=== PATIENT | female | born 1955 | race Caucasian/White ===

== ENCOUNTER 2021-03-20 14:36 | Outpatient (REF) | payer OTHER, SELFPAY ==
--- NOTE | ~2021-03-20 | MM_ITS ---
EXAMINATION: MM SCREENING DIGITAL BREAST TOMOSYNTHESIS, BILATERAL CLINICAL INFORMATION: Screening. Asymptomatic. The lifetime risk of breast cancer based on the Tyrer-Cuzick Model is 6.6%. COMPARISON: Mammography: December 27, 2019 and studies dating back to February 15, 2012 TECHNIQUE: Digital breast tomosynthesis is performed in both the craniocaudal and mediolateral oblique views along with computer-aided detection (CAD). Synthesized 2D images are generated from the tomosynthesis. FINDINGS: There are scattered areas of fibroglandular density (ACR BI-RADS breast composition Category b). There are no significant masses, abnormal calcifications, or other abnormalities. MM/MM tomosynthesis screening BI IMPRESSION: There are no significant changes from prior study. ASSESSMENT: BI-RADS 1: Negative RECOMMENDATION: Routine annual mammography screening. This patient's information was entered into a reminder system with a target due date for their next mammogram.
== END 2021-03-20 14:37 | disposition home or self-care (01) ==
LOC: HO.MAMMO 14:36
PROVIDERS: Visit Provider Nurse Practitioner Family
DX: Z12.31 Encounter for screening mammogram for malignant neoplasm of breast (principal)
CPT/HCPCS: 77063; 77067

== ENCOUNTER 2022-03-23 16:05 | Outpatient (REF) | payer MEDICARE, SELFPAY ==
--- NOTE | ~2022-03-23 | MM_ITS ---
EXAMINATION: MM SCREENING DIGITAL BREAST TOMOSYNTHESIS, BILATERAL CLINICAL INFORMATION: Screening. Asymptomatic. The lifetime risk of breast cancer based on the Tyrer-Cuzick Model is 8%. COMPARISON: Mammography: 03/20/2021, 12/27/2019, 11/10/2018, 10/12/2017 TECHNIQUE: Digital breast tomosynthesis is performed in both the craniocaudal and mediolateral oblique views along with computer-aided detection (CAD). Synthesized 2D images are generated from the tomosynthesis. FINDINGS: There are scattered areas of fibroglandular density (ACR BI-RADS breast composition Category b). Parenchymal pattern is similar to prior studies. There is chronic parenchymal asymmetry upper left breast on MLO view similar to prior exams. Neither breast shows developing density or interval architectural abnormality. There are scattered bilateral punctate round and dermal calcifications. Small low axillary tail nodes are stable. The skin contours are smooth. No significant changes. MM/MM tomosynthesis screening BI IMPRESSION: No mammographic evidence of malignancy. ASSESSMENT: BI-RADS 2: Benign RECOMMENDATION: Routine annual mammography screening. This patient's information was entered into a reminder system with a target due date for their next mammogram.
== END 2022-03-23 16:06 | disposition home or self-care (01) ==
LOC: HO.MAMMO 16:05
PROVIDERS: Visit Provider Nurse Practitioner Family
DX: Z12.31 Encounter for screening mammogram for malignant neoplasm of breast (principal)
CPT/HCPCS: 77063; 77067

== ENCOUNTER 2023-04-20 15:02 | Outpatient (REF) | payer MEDICARE, SELFPAY ==
--- NOTE | ~2023-04-20 | MM_ITS ---
EXAMINATION: MM SCREENING DIGITAL BREAST TOMOSYNTHESIS, BILATERAL CLINICAL INFORMATION: Screening. Asymptomatic. The lifetime risk of breast cancer based on the Tyrer-Cuzick Model is 7%. COMPARISON: Mammography: 03/23/2022, 03/20/2021, 12/27/2019, 11/10/2018, 10/12/2017 TECHNIQUE: Digital breast tomosynthesis is performed in both the craniocaudal and mediolateral oblique views along with computer-aided detection (CAD). Synthesized 2D images are generated from the tomosynthesis. FINDINGS: There are scattered areas of fibroglandular density (ACR BI-RADS breast composition Category b). Parenchymal pattern is similar to prior studies and there is no developing density or interval significant mass or architectural abnormality. No abnormal calcifications. Scattered bilateral asymmetries are stable including posterior upper left breast on MLO view and mid outer right breast on CC view. There are scattered bilateral round and dermal calcifications. The axilla and skin contours are unremarkable. No significant changes from prior exams. MM/MM tomosynthesis screening BI IMPRESSION: No mammographic evidence of malignancy. ASSESSMENT: BI-RADS 2: Benign RECOMMENDATION: Routine annual mammography screening. This patient's information was entered into a reminder system with a target due date for their next mammogram.
== END 2023-04-20 15:03 | disposition home or self-care (01) ==
LOC: HO.MAMMO 15:02
PROVIDERS: Visit Provider Nurse Practitioner Family
DX: Z12.31 Encounter for screening mammogram for malignant neoplasm of breast (principal)
CPT/HCPCS: 77063; 77067

== ENCOUNTER 2024-04-25 14:31 | Outpatient (REF) | payer MEDICARE, SELFPAY | END 2024-04-25 14:32 | disposition home or self-care (01) | LOC: HO.MAMMO 14:31 | PROVIDERS: PCP Nurse Practitioner; Visit Provider Nurse Practitioner Family | DX: Z12.31 Encounter for screening mammogram for malignant neoplasm of breast (principal) | CPT/HCPCS: 77063; 77067 ==

== ENCOUNTER → 2024-04-25 15:00 | Outpatient (BNV) | payer MEDICARE, SELFPAY | PROVIDERS: PCP Nurse Practitioner; Visit Provider Radiology Diagnostic Radiology | DX: Z12.31 Encounter for screening mammogram for malignant neoplasm of breast (principal) | CPT/HCPCS: 77063; 77067 ==

== ENCOUNTER 2025-05-01 14:19 | Outpatient (REF) | payer MEDICARE, SELFPAY ==
--- NOTE | ~2025-05-01 | MM_ITS ---
EXAMINATION: MM SCREENING DIGITAL BREAST TOMOSYNTHESIS, BILATERAL CLINICAL INFORMATION: Screening. Asymptomatic. COMPARISON: Mammography: Comparison is made with available priors TECHNIQUE: Digital breast mammography with tomosynthesis is performed in both the craniocaudal and mediolateral oblique views along with computer-aided detection (CAD). FINDINGS: There are scattered areas of fibroglandular density (ACR BI-RADS breast composition Category b). There are no significant masses, abnormal calcifications, or other abnormalities. MM/MM tomosynthesis screening BI IMPRESSION: No mammographic evidence of malignancy. ASSESSMENT: BI-RADS BI-RADS 1 - Negative RECOMMENDATION: Routine annual mammography screening. 1 year F/U This examination should not preclude the clinical evaluation of a suspicious palpable abnormality. This patient's information was entered into a reminder system with a target due date for their next mammogram. Electronically signed by: Erin Hilton DO 05/04/2025 05:41 PM EDT
--- OUTSIDE RECORDS SUMMARY | 2025-05-01 17:29 | XMS_ITS | Data Portability ---
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 Plan to continue to monitor ROM and guide patient through strengthening OH to meet goals of ADL's and IADL's. Rehab potential is Good. Next visit: review HEP. modify/progress/r egress as needed. RA Date: 02/18/24, Visit # 9/12 STG/LTG Time to Achieve Goal Progress per IE Comment STG 4 weeks Improve understanding of exacerbating movements contributing to pain. 75% STG 4 weeks Patient will improve R shoulder PROM WNL in all planes. 75% STG 4 weeks Patient will improve R shoulder and scapular MMT to 4/5 in all planes. 75% LTG 8 weeks Patient will improve R shoulder AROM WNL in all planes. 75% LTG 8 weeks Patient will improve R shoulder and scapular MMT to 5/5 in all planes. 50% LTG 8 weeks Independent in comprehensive HEP. 75% [email or web address] Not available 01/18/2024 10:04:09 01/20/2024 01/20/2024 We completed you r Medicare Wellness exam today. This was an opportunity to assess your overall well being including your ability to care for yourself, your mobility, memory, mental health, as well as your safety. With advancing age, it is important to assign someone in your life as your Health Care Proxy (HCP). This person should know what is important to you and what your wishes are for medical procedures if you cannot communicate your wishes yourself (severe illness, unconsciousness). We discussed having a completed Health Care Proxy form today. In addition, today we started a conversation about your End of Life wishes. These conversations will continue over the years. Please consider reading the book, Being Mortal by Humphrey Barrientos to help frame future conversations. We discussed the purpose of a MOLST form (Medical Orders for Life Sustaining Treatment) and completed this form if appropriate per your wishes. Vision and Hearing are senses that are critically important as we age. When impaired, they can contribute to memory loss, falls, and make it harder to drive, talk to family and friends, and engage in the world. Please get your vision checked yearly and your hearing checked when you start to notice hearing loss. We discussed approaches to lowering your risk of heart disease and stroke . Your blood pressure is at goal. Your cholesterol is at goal. We discussed cancer screening you may need as well as vaccines to prevent infections. Colon Cancer : Your risk of colon cancer is average. Due for colorectal screening:. If you are not planning to have a colonoscopy please screen with stool cards yearly. Breast Cancer : Breast Cancer Screening (mammography). Next mammogram due: 2023. Cervical Cancer Screening (pap test). Next pap due: 2024. Influenza Vaccine : Flu shot yearly. Tetanus Vaccine : Every 10 years. Due: 2022. last 2019 The following vaccines are available from your pharmacy: Pneumonia Vaccine : PCV20: once after age 65. Shingles Vaccine : 2 shots after age 50. Covid Vaccine : Make sure you have received the most up to date covid vaccine. Your personal health goal for the year is: see below [email or web address] Not available 01/21/2024 22:28:01 04/06/2024 04/06/2024 A: Pt presents with significant decrease of AROM and increased pain since last session, decreased flexibility of shoulder wrist, and elbow, and increased stiffness with function. PT reviewed AAROM using pulleys, dowel, supine versus seated. PT recommending supported AAROM of shoulder. PT recommending shoulder, elbow, wrist and forearm AROM first thing in the morning prior to movements. PT recommended pool/water aerobics to offload shoulder and allow for more range of motion. Pt would benefit from skilled PT intervention 1-2x/week for 12 weeks in order to address the aforementioned impairments, maximize patient function, and achieve patient specific goals. Physical Therapy Treatments may include (as appropriate): 76147 Therapeutic exercise 20766 Neuromuscular Re-education, Taping. 36083 Gait Training 36651 Manual 11756 Therapeutic Activities, Patient education, HEP instruction. 85951 Self-care Management 35952 Attended Electrical Stimulation for strength, ROM, flexibility, endurance, power, functional mechanics. 21026: Ultrasound Rehab potential is Good. Next visit: review HEP. modify/progress/r egress as needed. RA Date: 07/07/24, Visit # 10 STG/LTG Time to Achieve Re-eval 04/06/24 Goal Progress per IE Comment STG 4 weeks Improve understanding of exacerbating movements contributing to pain. 75% STG 4 weeks Patient will improve R shoulder PROM WNL in all planes. 50% STG 8 weeks Patient will improve R shoulder and scapular MMT to 3/5 in all planes. 75% LTG 8 weeks Patient will improve R shoulder AROM WNL in all planes. 50% LTG 12 weeks Patient will improve R shoulder and scapular MMT to 4/5 in all planes. 25% LTG 12 weeks Independent in comprehensive HEP. 75% [email or web address] Not available 04/06/2024 11:04:33 04/27/2024 04/27/2024 A: Pt is consulting with surgeon next week. Pt is actively participating with PT, would benefit from MRI, plan is to continue improving ROM as tolerated and strengthening as tolerated. Pt has most difficulty with ER, initial lifting, and lifting over 90 degrees. Rehab potential is Good. Next visit: review HEP. modify/progress/r egress as needed. RA Date: 07/07/24, Visit # 10 STG/LTG Time to Achieve Re-eval 04/06/24 Goal Progress per IE Comment STG 4 weeks Improve understanding of exacerbating movements contributing to pain. 75% STG 4 weeks Patient will improve R shoulder PROM WNL in all planes. 50% STG 8 weeks Patient will improve R shoulder and scapular MMT to 3/5 in all planes. 75% LTG 8 weeks Patient will improve R shoulder AROM WNL in all planes. 50% LTG 12 weeks Patient will improve R shoulder and scapular MMT to 4/5 in all planes. 25% LTG 12 weeks Independent in comprehensive HEP. 75% [email or web address] Not available 04/27/2024 11:30:15 Plan of Treatment Reminders Order Date Submit Date Provider Last Modified By Organization Details Last Modified Time Details Appointments None recorded. Lab None recorded. Referral None recorded. Procedures None recorded. Surgeries None recorded. Imaging None recorded. Medication Orders meloxicam 15 mg tablet 2023 024 [email or web address] [id number], [address], [facility], [place], [address], 11:42:21 Patient Targets Encounter Date Encounter Id Patient Goals Patient Target Last Modified By Organization Details Last Modified Time 01/20/2024 [id number] lose a few pounds, increase exercise, improve HDL [email or web address] Not available 01/20/2024 12:41:03 Patient Instructions Encounter Date Encounter Id Patient Instructions Last Modified By Organization Details Last Modified Time 11/23/2023 [id number] Continue with physical therapy Use Meloxicam as needed for pain Contact me if you would like to see a surgeon Follow-up as needed for your shoulder Make a follow-up appointment with the blood pressure clinic or your primary care provider within 2 weeks as we discussed Not available 11/23/2023 09:40:11 All of the patients questions were answered and they understand the plan of care. Thank you for allowing me to participate in the care of your patient. Please feel free to contact me with any questions regarding their care. Not available 11/23/2023 09:40:45 01/20/2024 [id number] advance directives: care instructions [email or web address] Not available 01/20/2024 12:37:33 preventing falls : care instructions Not available 01/20/2024 12:37:33 hearing loss: care instructions [email or web address] Not available 01/20/2024 12:37:33 well visit, over 65: care instructions [email or web address] Not available 01/20/2024 12:37:33 Reason for Referral None Reported. Results Created Date Observation Date Name Description Value Unit Range Abnormal Flag Note LastModifiedBy Organization Detail LastModifiedTime 01/13/20 24 01/13/2024 COMP. METAB OLIC PANEL glucose 88 mg/dL 70-100 Not Available [address], [address], 01/13/2024 14:41:34 01/13/20 24 01/13/2024 COMP. METAB OLIC PANEL BUN 12 mg/dL 7-18 Not Available [address], [address], 01/13/2024 14:41:34 01/13/20 24 01/13/2024 COMP. METAB OLIC PANEL creatinine 0.6 mg/dL 0.8-1. 3 low Not Available [address], [address], 01/13/2024 14:41:34 01/13/20 24 01/13/2024 COMP. METAB OLIC PANEL B/C 20.0 ratio Not Available [address], [address], 01/13/2024 14:41:34 01/13/20 24 01/13/2024 COMP. METAB OLIC PANEL GFR >=60ML /MIN mL/mi n normal >=60m L/min - Michelle l or midly reduc ed <60mL /min- Decre ased kidne y funct ion <15mL /min - Kidne y failu re [facility] calcu lates estim ated Glome rular Filtr ation Rate (eGFR ) using the Chron ic Kidne y Disea se Epide miolo gy Colla borat ion (CKD- EPI) Equat ion (Xiao r et. al 2020) as recom tasia d by the Natio nal Kidne y Found ation . eGFR is based on age, serum creat inine , and sex. CKD-E PI does not calcu late eGFR by race, does not apply to child bernard (age <18 years ), and shoul d not be used in pregn lenore. Not Available [address], [address], 01/13/2024 14:41:34 01/13/20 24 01/13/2024 COMP. METAB OLIC PANEL sodium 139 mmol/ L 136-14 5 Not Available [address], [address], 01/13/2024 14:41:34 01/13/20 24 01/13/2024 COMP. METAB OLIC PANEL potassium 5.0 mmol/ L 3.5-5. 1 Not Available [address], [address], 01/13/2024 14:41:34 01/13/20 24 01/13/2024 COMP. METAB OLIC PANEL chloride 102 mmol/ L 96-107 Not Available [address], [address], 01/13/2024 14:41:34 01/13/20 24 01/13/2024 COMP. METAB OLIC PANEL anion gap 9.0 5.0-15 .0 Not Available [address], [address], 01/13/2024 14:41:34 01/13/20 24 01/13/2024 COMP. METAB OLIC PANEL CO2 28 mmol/ L 21-32 Not Available [address], [address], 01/13/2024 14:41:34 01/13/20 24 01/13/2024 COMP. METAB OLIC PANEL calcium 9.5 mg/dL 8.5-10 .3 Not Available [address], [address], 01/13/2024 14:41:34 01/13/20 24 01/13/2024 COMP. METAB OLIC PANEL total protein 6.6 g/dL 6.4-8. 2 Not Available [address], [address], 01/13/2024 14:41:34 01/13/20 24 01/13/2024 COMP. METAB OLIC PANEL albumin 3.8 g/dL 3.4-5. 0 Not Available [address], [address], 01/13/2024 14:41:34 01/13/20 24 01/13/2024 COMP. METAB OLIC PANEL globulin 2.8 g/dL Not Available [address], [address], 01/13/2024 14:41:34 01/13/20 24 01/13/2024 COMP. METAB OLIC PANEL A/G 1.4 ratio 0.8-2. 0 Not Available [address], [address], 01/13/2024 14:41:34 01/13/20 24 01/13/2024 COMP. METAB OLIC PANEL total bilirubin 0.90 mg/dL 0.00-1 .00 Not Available [address], [address], 01/13/2024 14:41:34 01/13/20 24 01/13/2024 COMP. METAB OLIC PANEL AST 19 U/L 0-37 Not Available [address], [address], 01/13/2024 14:41:34 01/13/20 24 01/13/2024 COMP. METAB OLIC PANEL ALT 25 U/L 6-63 Not Available [address], [address], 01/13/2024 14:41:34 01/13/20 24 01/13/2024 COMP. METAB OLIC PANEL alk. phos. 86 U/L 50-136 Not Available [address], [address], 01/13/2024 14:41:34 01/13/20 24 01/13/2024 LIPID PANEL cholesterol 199 mg/dL <200 mg/dl Nurys able 200-2 39 mg/dl Borde rline High >240 mg/dl High Not Available [address], [address], 01/13/2024 14:41:35 01/13/20 24 01/13/2024 LIPID PANEL triglyceride s 97 mg/dL <150 mg/dL Michelle l 150-1 99 mg/dL Borde rline High 200-4 99 mg/dL High >500 mg/dL Very High Not Available [address], [address], 01/13/2024 14:41:35 01/13/20 24 01/13/2024 LIPID PANEL direct HDL 54 mg/dL <40 mg/dl - Major Risk for CHD >60 mg/dl - Negat fausto Risk for CHD Not Available [address], [address], 01/13/2024 14:41:35 01/13/20 24 01/13/2024 LDL - CALCU LATED LDL - calculated 125.6 RISK CATEG ORY LDL GOAL _ CHD or CHD Risk Equiv alent s <100 mg/dl (10-y ear risk >20%) 2+ Risk Facto rs <130 mg/dl (10-y ear risk <= 20%) 0-1 Risk Facto r <160 mg/dl Almo st all peopl e with 0-1 risk facto r have a 10 year risk <10%, thus 10 year risk asses ment in peopl e with 0-1 risk facto r is not neces grace. Not Available [address], [address], 01/13/2024 14:41:37 01/13/20 24 01/13/2024 VITAM IN D 25-HY DROXY TOTAL vitamin D 25-hydroxy EIA 34.9 NG/mL 20.0-9 9.9 Thera py is based on measu remen t of total 25-OH D, with level s less than 20 ng/mL indic ative of Vitam in D defic iency . Level s betwe en 20ng/ mL and 30 ng/mL sugge st insuf ficie ncy. Optim al Level s are great er than 30 ng/mL . Not Available [address], [address], 01/13/2024 15:15:45 05/25/20 24 04/25/2024 MAMMO , scree jana No observ ation record ed. [address] [place], [address], 05/26/2024 11:36:51 05/25/20 24 04/25/2024 MAMMO , scree jana No observ ation record ed. [address] [place], [address], 05/26/2024 11:36:52 Result Notes None recorded. Problems Name Problem SNOMED Code Status Onset Date Resolution Date Notes Provider Name and Address Organization Details Recorded Time Shoulder tendinit is Active right > left. Luisa Tracey, FINANCIAL REP-BC [address] [place] [address], [address] , [facility] 7 14:53:27 Olecrano n bursitis 364431652 Active NELLIE Dickson [address] [place] [address], [address] , [facility] 5 12:03:30 Osteopor osis 60520257 Active 2021 Based on 09/2022 bone density scan. Reviewed results. Ailin Rendon NP [address] [place] [address], [address] , [facility] 2 22:48:46 Mixed hyperlip idemia 753734889 Active 2000 Rachelle lovell, [facility] 5 08:36:16 Contusio n [id number] Completed 200310/10/2009 Not Available [facility] 3 03:09:33 Urticari a caused by cold and heat 848554142 Completed 200004/02/2017 Luisa Tracey [address], [address] , [facility] 7 14:52:24 Acute secretor y otitis media 964110187 Completed 200610/10/2009 Not Available [facility] 3 03:09:33 Gastroes ophageal reflux disease 510918375 Completed 04/02/2017 Luisa Tracey [address], [address] , [facility] 7 14:53:29 Presbyop ia 33971635 Active 2008 NELLIE Dickson [address] [place] [address], [address] , [facility] 5 11:59:00 Acute non-supp urative serous otitis media 182670010 Completed 200510/10/2009 Not Available [facility] 3 03:09:33 Radial styloid tenosyno vitis 23069602 Completed 200610/10/2009 Not Available [facility] 3 03:09:33 Benign essentia l hyperten corky 8000276 Completed 200004/02/2017 Luisa Tracey [address], [address] , [facility] 7 14:51:36 Neck pain 85297521 Completed 200310/10/2009 Not Available [facility] 3 03:09:33 Dog bite Completed 08/03/2013 NELLIE Dickson [address] [place] [address], [address] , [facility] 3 20:12:38 Acute suppurat fausto otitis media without spontane ous rupture of ear drum 73870652 Completed 200010/10/2009 Not Available [facility] 3 03:09:33 Atopic dermatit is 26675337 Completed 200610/10/2009 Not Available [facility] 3 03:09:33 Pure hypergly ceridemi a 871674955 Completed 200210/10/2009 Not Available [facility] 3 03:09:33 Allergic rhinitis caused by pollen 38155923 Active 2005 NELLIE Dickson [address] [place] [address], [address] , [facility] 5 12:03:30 Anemia 379935132 Completed 200504/02/2017 Luisa Tracey, [facility], [address] , [facility] 7 14:54:05 Acute maxillar y sinusiti s 79524000 Completed 200010/10/2009 Not Available [facility] 3 03:09:33 Elevated blood-pr essure reading without diagnosi s of hyperten corky 628130908 Completed 200110/10/2009 Not Available [facility] 3 03:09:33 Seborrhe ic dermatit is 01997552 Active NELLIE Dickson [address] [place] [address], [address] , [facility] 5 12:03:30 Myopia 24205354 Active 2008 NELLIE Dickson [address] [place] [address], [address] , [facility] 5 11:59:00 Astigmat ism 65365817 Active 2005 NELLIE Dickson [address] [place] [address], [address] , [facility] 5 11:59:00 Impacted cerumen 43331144 Completed 200110/10/2009 Not Available [facility] 3 03:09:33 Acute allergic serous otitis media 98703490 Completed 200610/10/2009 Not Available [facility] 3 03:09:33 Onychomy cosis 827956367 Completed 200204/02/2017 Luisa Tracey, FINANCIAL REP-BC [address] [place] [address], [address] , [facility] 7 14:54:23 Anisocor ia 02561182 Active 2005 NELLIE Dickson [address] [place] [address], [address] , [facility] 5 11:56:28 Contact dermatit is due to plants, except food Completed 08/03/2013 NELLIE Dickson [address] [place] [address], [address] , [facility] 3 20:12:38 Breathin g painful 72578427 Completed 200310/10/2009 Not Available [facility] 3 03:09:33 Finding by method 674898562 Completed 200008/03/2013 NELLIE Dickson [address] [place] [address], [address] , [facility] 3 20:12:38 Common cold 58781815 Completed 200110/10/2009 Not Available [facility] 3 03:09:33 Pain of joint of hand 658777309 Completed 09/27/2013 Not Available [facility] 3 02:02:43 On examinat ion - a rash Completed 200610/10/2009 Not Available [facility] 3 03:09:33 Cellulit is and abscess of upper arm 533028658 Completed 200310/10/2009 Not Available [facility] 3 03:09:33 Sprain of wrist 15399228 Completed 200610/10/2009 Not Available [facility] 3 03:09:33 Problem Notes None recorded. Procedures Surgical History Date Name Laterality Status Provider Name and Address Organization Details Recorded Time 01/20/20 24 Medicare Wellness Visit completed Milo Cochran [facility] 01/20/2024 11:32:04 01/20/20 24 Cerumen Removal - Irrigation/Lavage completed Sherly Martinez RN [facility] 01/20/2024 13:02:56 01/18/20 71997: Therapeutic Exercise completed Laurent Caicedo DPT [address] [place], [address], [facility] 01/18/2024 09:06:54 01/18/20 Neuromuscular re-education completed Laurent Caicedo DPT [address] [place], [address], [facility] 01/18/2024 10:04:28 01/18/20 Treatment and Advice completed Laurent Caicedo DPT [address] [place], [address], [facility] 01/18/2024 09:52:56 11/18/19 [address]: Therapeutic Exercise completed Laurent Caicedo DPT [address] [place], [address], [facility] 11/18/2023 09:03:02 11/18/19 [address]: Manual Therapy completed Laurent Caicedo DPT [address] [place], [address], [facility] 11/18/2023 09:03:02 11/18/19 Treatment and Advice completed Laurent Caicedo DPT [address] [place], [address], [facility] 11/21/2023 22:20:36 10/14/20 27156: Therapeutic Exercise completed Laurent Caicedo DPT [address] [place], [address], [facility] 10/14/2023 08:58:32 10/14/20 46435: Manual Therapy completed Laurent Caicedo DPT [address] [place], [address], [facility] 10/14/2023 11:00:03 10/14/20 23 [address]2771: Ultrasound (1:1) completed Laurent Caicedo DPT [address] [place], [address], [facility] 10/14/2023 11:00:57 10/14/20 Treatment and Advice completed Laurent Caicedo DPT [address] [place], [address], [facility] 10/14/2023 09:35:43 09/28/20 US Guided Shoulder Joint Injection completed Siva Zazueta MD [address] [place], [address], [facility] 09/28/2023 16:08:55 09/16/20 51413: Therapeutic Exercise completed Laurent Caicedo DPT [address] [place], [address], [facility] 09/16/2023 09:27:17 09/16/20 26055: Manual Therapy completed Laurent Caicedo DPT [address] [place], [address], [facility] 09/16/2023 09:27:17 09/16/20 Treatment and Advice completed Laurent Caicedo DPT [address] [place], [address], [facility] 09/16/2023 09:27:17 08/26/20 59830: Therapeutic Exercise completed Laurent Caicedo DPT [address] [place], [address], [facility] 08/26/2023 10:41:50 08/26/20 61074: Manual Therapy completed Laurent Caicedo DPT [address] [place], [address], [facility] 08/26/2023 10:41:45 08/26/20 Treatment and Advice completed Laurent Caicedo DPT [address] [place], [address], [facility] 08/26/2023 10:42:19 08/19/20 18302: Therapeutic Exercise completed Laurent Caicedo DPT [address] [place], [address], [facility] 08/19/2023 10:04:54 08/19/20 95664: Manual Therapy completed Laurent Caicedo DPT [address] [place], [address], [facility] 08/19/2023 10:05:02 08/19/20 Treatment and Advice completed Laurent Caicedo DPT [address] [place], [address], [facility] 08/19/2023 09:35:48 08/05/20 51006: Therapeutic Exercise completed Laurent Caicedo DPT [address] [place], [address], [facility] 08/05/2023 11:34:07 08/05/20 Treatment and Advice completed Laurent Caicedo DPT [address] [place], [address], [facility] 08/05/2023 12:01:15 07/21/20 81236: Therapeutic Exercise completed Laurent Caicedo DPT [address] [place], [address], [facility] 07/22/2023 09:47:38 07/21/20 Treatment and Advice completed Laurent Caicedo DPT [address] [place], [address], [facility] 07/21/2023 17:03:23 07/07/20 Physical Activity Counselling completed Laurent Caicedo DPT [address] [place], [address], [facility] 07/07/2023 11:33:26 07/07/20 16222: PT Eval Low Complexity completed Laurent Caicedo DPT [address] [place], [address], [facility] 07/07/2023 11:33:26 07/07/20 Treatment and Advice completed Laurent Caicedo DPT [address] [place], [address], [facility] 07/07/2023 11:57:05 11/17/20 22 Tigist - Colonoscopy completed Saleem Escoto MD [address] [place], [address], [facility] 09/24/2022 11:12:08 04/01/20 22 Medicare Wellness Visit completed Mar[facility] 03/31/2022 16:38:53 04/01/20 22 Alcohol use screening completed Marilia [facility]fe [facility] 03/31/2022 16:38:53 04/01/20 22 Cardiovascular disease risk reduction counseling completed Marilia [facility]fe [facility] 03/31/2022 16:38:53 01/03/20 20 prevention-cardiov ascular risk reduction counseling completed [facility] 01/03/2020 14:45:36 01/03/20 20 prevention-annual alcohol misuse screening completed [facility] 01/03/2020 14:45:36 04/02/20 15 Treatment and Advice completed Fatimah Lim OT [address] [place], [address], [facility] 04/02/2015 17:03:21 Imaging Results None recorded. Procedure Notes None recorded. Medical Equipment None Reported. Allergies No known drug allergies Medications Name Sig Start Date Stop Date Status Note LastModified by Organization Details LastModified Time Hydrocort isone-Iod oquinol 1 %-1 % topical cream 03/18 completed Take 1.00 applics twice daily Not Available Not Available Not Available omega-3 fatty acids 1,000 mg capsule Take 1 capsule twice a day by oral route. 2008 active Not Available Not Available Not Avai lable triamcino lone acetonide 0.5 % topical cream Apply a thin layer to the affected area(s) by topical route 2 times per day 2010 active Not Available Not Available Not Avai lable meloxicam 15 mg tablet TAKE 1 TABLET BY MOUTH EVERY DAY NEEDED FOR PAIN active Doesn't help for shoulder , not taking 01/20/24 Not Available Not Available Not Available Vitamin C 500 mg chewable tablet 01/19 completed stopped 09/28/23 Not Available Not Available Not Available triamcino lone acetonide 0.1 % topical cream APPLY A THIN LAYER TO THE AFFECTED AREA(S) BY TOPICAL ROUTE 2 TIMES PER DAY 04/02 completed Take 1.00 applics twice daily Not Available Not Available Not Available diclofena c sodium 75 mg tablet,de layed release TAKE 1 TABLET BY MOUTH TWICE A DAY NEEDED FOR 14 DAYS 11/23 completed not using Not Available Not Available Not Available ketoconaz ole 2 % topical cream APPLY BY TOPICAL ROUTE TO THE AFFECTED AREA(S) TWICE DAILY 01/19 completed Not Available Not Available Not Available Denta 5000 Plus 1.1 % cream USE DIRECTED BY DENTIST NOT COVERED* * active Not Available Not Available No t Available garlic active Not Available Not Availa ble Not Available multivita min active take 1 tab daily Not Available Not Available Not Available red yeast rice 600 mg capsule Take 2 capsules every day by oral route. 2008 active Not Available Not Available Not Avai lable Vitals Date Recorded Body height Systolic blood pressure Diastolic blood pressure Provider Name and Address Organization Details Last Updated DateTime 11/23/2023 155.45 cm 144 mm[Hg] 80 mm[Hg] Alissa Birch [facility] 11/23/2023 09:17:10 Date Recorded Body height Heart rate Body mass index (BMI) Body weight Systolic blood pressure Diastolic blood pressure Provider Name and Address Organization Details Last Updated DateTime 4 155.45 cm 80 /min 23.3 kg/m2 26555.4 5 g 154 mm[Hg] 80 mm[Hg] Milo Cochran [facility] 4 11:48:59 Social History Question Answer Notes LastModified by Organizat ion Details LastModified Time Tobacco Smoking Status Never Smoker Not Available [employer] 09/24/2011 04:53:49 What Is Your Level Of Caffeine Consumption? Moderate 2 Cups Per Day [email or web address] Information not available 10/22/2022 What Type Of Diet Are You Following? REGULAR [email or web address] Information not available 10/22/2022 Education 12 [email or web address] Information no t available 10/22/2022 Have There Been Any Changes To Your Family Or Social Situation? No [email or web address] Information not available 10/22/2022 Are There Any Guns Present In Your Home? No [email or web address] Information not available 09/24/2011 Do You Use Insect Repellent Routinely? No [email or web address] Information not available 10/22/2022 Live Alone Or With Others? With Others [email or web address] Information not available 10/22/2022 Patient Has Health Care Proxy Signed And In Chart No Has Form 01/2024 [email or web address] Information not available 09/24/2011 Marital Status [email or web address]-251 Informatio n not available 10/22/2022 Mosquito Repellent Used Routinely No Sometimes [email or web address] Information not available 10/22/2022 What Was The Date Of Your Most Recent Tobacco Screening? 01/20/2024 [email or web address] Information not available 01/20/2024 How Many Children Do You Have? 0 [email or web address] Information not available 03/26/2015 What Is Your Relationship Status? Information not available 04/01/2022 Do You Use Your Seat Belt Or Car Seat Routinely? Yes Information not available 04/01/2022 Seat Belts Used Routinely Yes [email or web address] Information not available 10/22/2022 Smoke Alarm In Home Yes [email or web address] Information not available 10/22/2022 Do You Have Smoke And Carbon Monoxide Detectors In Your Home? Yes No Carbon M. [email or web address] Information not available 10/22/2022 Are You Passively Exposed To Smoke? No [email or web address] Information not available 10/22/2022 General Stress Level Low [email or web address] Information not available 10/22/2022 Do You Use Sunscreen Routinely? No [email or web address] Information not available 10/22/2022 Sex: Unknown Functional Status Question Answer Note LastModified by Organizat ion Details LastModified Time Do you use any illicit or recreational drugs? No [email or web address] Information not available 10/22/2022 Do you or have you ever used any other forms of tobacco or nicotine? No [email or web address] Information not available 10/22/2022 What is your level of alcohol consumption? 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 Moderate Information not available 04/01/2022 Mental Status None recorded. Family History Relationship Description Onset Age of this Age Resolved Age Notes LastModified by Organization Details LastModified Time Brother Hyperlipidem ia [email or web address] [id number] Not available 06/19/2013 03:00:31 Brother Hypertensive disorder previo usly record ed as Hypert ension [email or web address] [id number] Not available 06/19/2013 03:00:31 Brother Type 2 diabetes mellitus [email or web address] Not available 2021 09:28:29 Mother Phlebitis and thrombophleb itis [email or web address]-251 Not available 2021 09:28:29 Mother Cerebrovascu lar accident 52 previo usly record ed as Stroke [email or web address] [id number] Not available 06/19/2013 03:00:31 Sister Hypertensive disorder ? (previ ously record ed as Hypert ension ) [email or web address] [id number] Not available 06/19/2013 03:00:31 Father Leukemia (morphologic abnormality) 72 chroni c myeloc ytic leukem ia (previ ously record ed as Cancer - Leukem ia) [email or web address] [id number] Not available 06/19/2013 03:00:31 Father Malignant neoplasm of lung previo usly record ed as Cancer - Lung [email or web address] [id number] Not available 06/19/2013 03:00:31 Notes:Cardiovascular: Family history is remarkable for hypertension and hyperlipidemia. mo and bro htn fa-hyperlipidemnia Neurological: Family history is remarkable for CVA. phlebitis with clot to brain in mother age 52 Cancer: Family history is remarkable for leukemia and lung cancer. father, smoker age 72 of CML 3 sisters - A&W (some overweight) Medical History No medical history recorded. Gynecological History Statement/Question Response Date of LMP Obstetrics History GPAL:G 0 P 0 0 0 0 Immunizations Vaccine Type Date Status Note Provider Nam e and Address Organization Details Recorded Time Tdap 12/06/2009 completed Not Available [employer] 11/25/2019 02:38:54 Past Encounters Encounter ID Performer Location Encounter Start Date Encounter Closed Date Diagnosis/Indication Diagnosis SNOMED-CT Code Diagnosis ICD10 Code Diagnosis Note [id number] Milo Price MD , [facility], [address] [place] [address] 05/16/2001 13:00:00 11/28/2008 02:02:29 [id number] NELLIE Dickson, [facility], [address] [place] [address] 06/14/2001 15:30:00 11/28/2008 02:02:29 [id number] NELLIE Dickson, [facility], [address] [place] [address] 07/15/2001 11:30:00 11/28/2008 02:02:29 [id number] NELLIE Dickson, [facility], [address] [place] [address] 09/02/2001 10:15:00 11/28/2008 02:02:[id number] [facility] RADIOLOGY [facility] [facility] , [facility] [address] [place] [address] 09/02/2001 11:15:00 11/28/2008 02:02:[id number] [facility] RADIOLOGY Technologi [facility] , [facility] [address] [place] [address] 09/02/2001 00:00:00 11/28/2008 02:02:29 [id number] NELLIE Dickson, [facility], [address] [place] [address] 01/13/2002 10:15:00 11/28/2008 02:02:29 [id number] [facility] - [address] [address] 01/18/2002 08:15:00 11/28/2008 02:02:29 [id number] BRIONNA Tello, [facility], [address] [place] [address] 08/11/2002 07:56:04 11/28/2008 02:02:29 [id number] NELLIE Dickson, [facility], [address] [place] [address] 10/27/2002 10:33:12 11/28/2008 02:02:29 [id number] [facility] - [facility] [address] [place] [address] 11/16/2002 07:41:35 11/28/2008 02:02:29 [id number] BRIONNA Childs, [facility], [address] [place] [address] 01/31/2003 08:43:25 11/28/2008 02:02:29 [id number] Grace Katz , [facility], [address] [place] [address] 04/29/2004 11:54:04 04/29/2004 16:19:32 [id number] Grace Katz, [facility], [address] [place] [address] 05/01/2004 11:49:38 05/01/2004 14:26:28 [id number] Lizbet Fink NP , [facility], [address] [place] [address] 10/24/2004 15:45:24 10/28/2004 12:44:36 [id number] NELLIE Dickson, [facility], [address] [place] [address] 11/28/2004 10:33:34 11/28/2004 15:34:33 [id number] [facility] - [address] [address] 12/09/2004 07:56:15 12/09/2004 07:56:19 [id number] NELLIE Dickson, [facility], [address] [place] [address] 12/04/2005 10:23:24 12/05/2005 15:19:29 [id number] Celestina Gomes, Eye [facility], [facility] [address] [place] [address] 12/28/2005 17:00:42 11/28/2008 02:02:29 [id number] [facility] - [address] [address] 12/28/2005 07:57:41 12/28/2005 07:57:44 [id number] NELLIE Dickson, [facility], [address] [place] [address] 01/08/2006 10:20:04 01/08/2006 16:31:18 [id number] [facility] - [address] [address] 01/08/2006 11:15:54 01/08/2006 11:16:08 [id number] NELLIE Dickson, [facility], [address] [place] [address] 04/01/2006 12:01:15 04/02/2006 10:15:54 [id number] BRIONNA Tello, [facility], [address] [place] [address] 04/06/2006 10:39:44 11/28/2008 02:02:29 [id number] [facility] - [address] [address] 04/13/2006 08:00:17 04/13/2006 08:00:21 [id number] [facility] - [address] [address] 09/06/2006 08:18:12 09/06/2006 08:18:20 [id number] MD BENNY Cano, [facility], [address] [place] [address] 11/25/2006 15:02:06 11/26/2006 09:48:18 [id number] NELLIE Dickson, [facility], [address] [place] [address] 02/14/2007 15:39:03 02/15/2007 12:04:43 [id number] NELLIE Dickson, [facility], [address] [place] [address] 09/26/2007 13:19:52 10/03/2007 13:59:57 [id number] NELLIE Dickson, [facility], [address] [place] [address] 10/04/2007 14:32:41 11/28/2008 02:02:29 [id number] [facility] - [address] [address] 10/18/2007 07:27:37 10/18/2007 07:27:47 [id number] BRIONNA Tello, [facility], [address] [place] [address] 10/27/2007 10:34:45 11/28/2008 02:02:29 [id number] [facility] - [address] [address] 11/10/2007 09:00:28 11/10/2007 09:07:32 [id number] [facility] - [address] [place] [address] 12/15/2007 13:36:22 12/15/2007 13:36:36 [id number] NELLIE Dickson, [facility], OFFICE [address] [place] [address] 03/14/2009 14:37:08 03/19/2009 09:39:[id number] [facility], OFF[address] [place] [address] 04/11/2009 08:40:09 04/16/2009 09:25:24 [id number] [facility] - [facility] [address] [place] [address] 03/18/2009 07:25:23 03/18/2009 07:25:30 [id number] [facility] - [facility] [address] [place] [address] 04/11/2009 09:33:37 04/11/2009 09:33:47 [id number] [facility], [facility] [address] [place] [address] 06/12/2009 15:12:37 06/12/2009 16:05:57 [id number] BRIONNA Peralta, [facility], [address] [place] [address] 12/04/2009 16:25:43 12/05/2009 14:15:40 [id number] FP TREATMENT NURSE [facility], [facility], OFFICE [address] [place] [address] 12/06/2009 13:28:09 12/09/2009 09:48:[id number] [facility], OFF[address] [place] [address] 03/18/2010 09:19:27 03/20/2010 11:01:[id number] [facility], [address] [place] [address] 07/06/2011 13:23:49 07/07/2011 13:48:[id number] [facility], OFF[address] [place] [address] 08/24/2011 13:28:48 08/25/2011 11:15:[id number] [facility] RADIOLOGY Technologi st Radiology , [address] [address] 08/24/2011 14:31:42 08/25/2011 15:03:55 [id number] Fatimah Lim, OT Physical Therapy, [address] [address] 09/01/2011 15:59:02 09/02/2011 08:20:35 [id number] Fatimah Lim, OT Physical Therapy, [address] [address] 09/08/2011 13:22:24 09/08/2011 15:25:26 [id number] TRUPTI Howard , [facility], [address] [place] [address] 05/15/2013 09:18:29 05/15/2013 13:33:17 [id number] Darion Khan MD , [facility], [address] [place] [address] 08/10/2013 13:48:55 08/15/2013 10:47:29 Benign essential hypertension 8839117 Blood pressure at goal w/o med.though tends to run in the upper 130s, but never over 140. Continue to watch closely. Adult heal th examination 886047915 see Risk Assessment and Lifestyle Change Counseling section above Counseling [id number] Shoulder tendinitis 149967433 aparent supraspina tus tendinitis Mixed hyperlipidemia 316198863 LDL of 163 not at goal for pt with FH CAD mo 63 and BP elevations managed well without medication . Pain of joint of hand 215060832 Chronic bilat 1st MCP joint pain without inflammati on but with tenderness on exam. Anemia 247600187 No CBC since 2010. Since menses have stopped will check once more to conclude this issue most likely. [id number] NELLIE Dickson, [facility], [address] [place] [address] 02/15/2014 15:45:12 02/15/2014 16:35:55 Olecranon bursitis 163447779 r/o chip fx of olecranon d/t nature of fall and persistant sx. Advised birdie wrap for several weeks to decrease the swelling. [facility] e. [id number] NELLIE Dickson , [facility], OFF[address] [place] [address] 03/26/2015 11:00:32 03/26/2015 12:02:51 Adult health examination 530870583 Heathy 59 yo woman with healthy habits. see Risk Assessment and Lifestyle Change Counseling section above Counseling [id number] Mixed hyperlipidemia 878399385 LDL of 155 improved but not at goal for pt with FH CVA mo 63 and BP elevations managed well without medication . Encouraged pt to continue daily exercise but work to increase intensity (with fischer at [employer] or interval training). 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 Shoulder tendinitis 038524085 aparent supraspina tus tendinitis [id number] Fatimah Lim, OT Physical Therapy, [facility] [address] [place] [address] 04/02/2015 16:19:35 04/03/2015 09:44:28 Shoulder tendinitis 797668165 [id number] Fatimah Lim, OT Physical Therapy, [facility] [address] [place] [address] 04/11/2015 14:52:04 04/11/2015 15:32:45 Shoulder tendinitis 601891572 [id number] Fatimah Lim, OT Physical Therapy, [facility] [address] [place] [address] 04/25/2015 15:21:16 04/26/2015 09:12:01 Shoulder tendinitis 619049026 [id number] Luisa Tracey, KASI-BETH , [facility], [address] [place] [address] 04/02/2017 14:24:29 04/07/2017 08:23:22 Adult health examination 017721201 Z00.00 see Risk Assessment and Lifestyle Change Counseling section above, colonoscop y due 2018, mammograms [place]. pap completed 11/2016. Mixed hyperlipidemia 267 629370 E78.2 repeat, managed with diet and exercise. Seborrheic dermatitis 50 556859 L21.9 [id number] Oanh banda PA-C , [facility], [address] [place] [address] 01/03/2020 14:40:46 01/03/2020 14:43:26 Adult health examination 203147576 Z00.00 Encouraged continuing her healthy lifestyle/ routine exercise & well rounded dietGets adequate Ca++ & VitDSees Dentist/Op tometrist routinelyD EXA scan due at 65Lipids: Excellent, reviewed in detail today. ASCVD Risk low: 4.5%, discussed. Mammogram 12/27/2019 NegPap: [facility]Adri stall[facility] (pap due this April)Scree jana colonoscop y 2008 wnl, 10 y surveillan ce (overdue, scheduling )Very active, good diet Depression screening 171 718940 Z13.89 depression screening tool administer ed, entered into emr, scored and discussed, time greater than 7.5 minutes 7 Screening for alcohol abuse 780524802 Z13.39 Counseling 574445769 Z71 .89 Screening for malignant neoplasm of colon 572903706 Z12.11 Referral for a DIRECT booked colonoscop y. This patient is a healthy ASA Class 1 or 2 patient (only mild systemic disease), or a STABLE, well controlled insulin dependent diabetic. They do not have serious cardiac disease ie OH/angiopl asty within 1 year, symptomati c CHF; renal failure with CKD 4 or 5; take Coumadin, Plavix, Aggrenox, etc. Candidal intertrigo 2661 59139 B37.2 [id number] Octaviano Sanchez MD , [facility], [address] [place] [address] 04/01/2022 10:25:42 04/01/2022 16:42:07 Adult health examination 949886640 Z00.00 66 yr old female in overall good health seen today for annual wellness.D iscussed current health concerns, reviewed screening recommenda tions, discussed diet, exercise, ETOH, and cardiac health as well as health goals for the coming year.Mammo 03/2022 BI-RADS breast compositio n Category b). Parenchyma l pattern is similar to prior studiesPAP 11/2016, UTD, declines todayBONE DENSITY no bone density on record - will referCOLON CANCER SCREENING 09/2009 - overdue, referred todayASCVD SCORE - 5.6% - borderline risk Counseling 716296718 Z71 .9 including cardiovasc ular risk reduction counseling ASCVD Risk - 5.6%, borderline , discussed cont exercising Depression screening 171 802006 Z13.31 depression screening tool administer ed, entered into emr, scored and discussed, time greater than 7.5 minutesPHQ -9: 0 Screening for alcohol abuse 423976410 Z13.39 Audit-C: negative Mixed hyperlipidemia 267 181669 E78.2 Reviewed labs - Cholestero l 232,HDL 48; well controlled Cont diet & lifestyle Screening for osteoporosis 487805534 Z13.820 Due for bone density study - discussed & pt will scheduleDi scussed calcium and Vit D & cont walking/wt bearing exercise for healthy bones.Post menopausal women should consume 1200 mg of calcium per day (total of diet plus supplement s). However, do not take more than 2000 mg calcium per day, due to the possibilit y of side effects. Also take 800 internatio nal units (20 micrograms ) of vitamin D each day.Modera te alcohol intake, avoiding smoking and participat ing in weight bearing exercises (like walking) also help. Screening for malignant neoplasm of colon 931961173 Z12.11 Last colonoscop y 2008, overdue; referred. [id number] Saleem Escoto MD [facility], [facility] [address] [place] [address] 09/24/2022 09:24:40 09/24/2022 13:32:06 [id number] Octaviano Sanchez MD , [facility], [address] [place] [address] 10/22/2022 09:28:27 10/22/2022 16:51:03 Osteoporosis 32219682 M81.0 Cont walking, 2.5 - 3 miles per day approx 5 days per week.Your bone density test shows osteoporos is. You should continue to eat a diet high in calcium and take vitamin D supplement s 5,000 IU daily. Regular weight bearing exercise is also important. This test should be repeated in 2-3 years. Contact me if you have any questions regarding this test result. [id number] DO BENNY Chester, [facility], [address] [place] [address] 06/14/2023 08:56:55 06/14/2023 17:13:15 Pain of shoulder region 14959237 M25.519 R > L chronic painReferr al placed for PT and Dr. Zazueta.Lee l trial Diclofenac long acting and Lidocaine patch.Disc ussed Lidocaine/ Steroid Injection to the area, but declined at this time.Rotat or cuff and Shoulder exercises/ stretching exercise printed for ptReviewed red flags & when to seek UC/ED or RTO. Pt states understand ing & is in agreement with plan. [id number] [facility], [address] [address] 07/07/2023 11:16:37 07/09/2023 07:32:56 Impingement syndrome of right shoulder region 3523286013 95972 M75.41 Pain of ri ght shoulder joint 9115491560 2041851 M25.590 [id number] [facility] Yung Physical [facility], [address] [address] 07/21/2023 16:20:43 07/23/2023 17:25:58 Impingement syndrome of right shoulder region 5767687982 98072 M75.41 Pain of ri ght shoulder joint 0712114022 [id number] M25.182 [id number] [facility] Yung Physical [facility], [address] [address] 08/05/2023 11:22:37 08/05/2023 13:12:13 Impingement syndrome of right shoulder region 7543316410 14605 M75.41 Pain of ri ght shoulder joint 6645302126 [id number] M25.558 [id number] Neela Yung Physical [facility], [address] [address] 08/19/2023 08:46:59 08/19/2023 13:58:24 Impingement syndrome of right shoulder region 3376591293 74495 M75.41 Pain of ri ght shoulder joint 1293771290 5316391 M25.827 [id number] [facility]enn[facility], [address] [address] 08/26/2023 08:45:16 08/26/2023 11:08:03 Impingement syndrome of right shoulder region 2198747901 36984 M75.41 Pain of ri ght shoulder joint 0644340064 [id number] M25.402 [id number] Neela [facility], [facility] [address] [place] [address] 09/16/2023 09:15:20 09/21/2023 17:48:57 Impingement syndrome of right shoulder region 4139470767 81045 M75.41 Pain of ri ght shoulder joint 1250186501 7359704 M25.497 [id number] Siva Zazueta MD Sports Medicine, [facility] [address] [place] [address] 09/28/2023 15:29:04 10/04/2023 09:20:24 Increased blood pressure 12920690 R03.0 Your blood pressure was elevated today (higher than 140/90). Please follow up by scheduling an appointmen t in the Blood Pressure clinic within 2 weeks. Patient does not report chest pain, headaches, or other symptoms of end organ damage today in the office. I provided counseling regarding hypertensi on and the increased risk of kidney disease, cardiac disease, and stroke. In consultati on with their primary care provider I have advised that follow up at the blood pressure clinic or their PCP within 2 weeks for recheck and possible medication adjustment . Pain of sh ld region 21603460 M25.511 Susan is a 68-year-ol d female with right shoulder pain that I believe is due to biceps labral pathology. I performed a brief ultrasound today in the office revealing fluid within the biceps tendon sheath. The subscapula ris tendon had some slight thinning concerning for a small partial-th ickness tear. The supraspina tus and infraspina tus tendons had a limited evaluation but no larger rotator cuff tears were seen. We discussed biceps labral pathology today as well as discussing options for treatment. We discussed continued physical therapy versus a intra-ezra cular corticoste roid injection and potential surgery. With her ongoing symptoms the decision was made to perform a right shoulder intra-ezra cular corticoste roid injection under ultrasound guidance. She tolerated this well without complicati on. She will ice and rest over the next week and resume normal activities . She can restart physical therapy in 7-10 days. I did ask Susan to also obtain x-rays of her shoulder after the office visit. I have asked her to follow up with me in 8 weeks if her symptoms have not improved [id number] [facility], [address] [address] 10/14/2023 08:48:43 10/14/2023 11:05:08 Impingement syndrome of right shoulder region [id number] 77977 M75.41 Pain of ri ght shoulder joint [id number] M25.996 [id number] [facility], [address] [address] 11/18/2023 08:42:36 11/23/2023 08:35:57 Impingement syndrome of right shoulder region [id number] 76523 M75.41 Pain of ri ght shoulder joint [id number] M25.191 [id number] Siva Zazueta MD Sports Medicine, [address] [address] 11/23/2023 09:07:53 11/24/2023 13:48:56 Pain of shoulder region [id number] M25.511 Susan is a 68-year-ol d female with right shoulder pain due to moderate to severe glenohumer al osteoarthr itis. I reviewed this diagnosis with her today as well as discussing options for treatment. We discussed continued physical therapy and use of NSAIDs, further corticoste roid injections , and surgery. We specifical ly discussed that physical therapy does provide some mild to moderate benefit but will not be curative. We discussed that he would likely have progressiv darryl worsening symptoms with time which is the natural course of osteoarthr itis. I did than over-the-c ounter ibuprofen. We discussed the potential side effects and risks of this medication . I did offer her a referral to a surgeon which she declined. We discussed the possibilit y of a repeat injection in the future with a higher dose of Kenalog which may provide better symptom control. At this plane she will plan to continue with her activities as tolerated and I am always happy to see her back as needed for further care. Increased blood pressure [id number] R03.0 Your blood pressure was elevated today (higher than 140/90). Please follow up by scheduling an appointmen t in the Blood Pressure clinic within 2 weeks. Patient does not report chest pain, headaches, or other symptoms of end organ damage today in the office. I provided counseling regarding hypertensi on and the increased risk of kidney disease, cardiac disease, and stroke. In consultati on with their primary care provider I have advised that follow up at the blood pressure clinic or their PCP within 2 weeks for recheck and possible medication adjustment . [id number] [facility], [facility] [address] [place] [address] 01/18/2024 08:41:15 01/18/2024 12:06:49 Impingement syndrome of right shoulder region [id number] 02922 M75.41 Pain of ri ght shoulder joint [id number] M25.166 [id number] Keshia Rendon DO , [facility], OFFICE [address] [place] [address] 01/20/2024 11:20:11 01/24/2024 14:24:10 Adult health examination [id number] Z00.00 68 yr old female in overall good health seen today for annual wellness.D iscussed current health concerns, reviewed screening recommenda tions, discussed diet, exercise, ETOH, and cardiac health as well as health goals for the coming year.Mammo 03/2022 BI-RADS breast compositio n Category b). Parenchyma l pattern is similar to prior studiesPAP 11/2016, UTD, followed by gynBONE DENSITY no bone density on record - will referCOLON CANCER SCREENING 09/2009 - overdue, referred todayASCVD SCORE - 5.6% - borderline risk Depression screening 171 [id number] Z13.31 depression screening tool administer edPHQ-9: 0 Screening for alcohol abuse [id number] Z13.39 Alcohol use screening tool administer edAudit-C: 0 Osteoporosis [id number] M8 1.0 Cont walking, 2.5 - 3 miles per day approx 5 days per week.Your bone density test shows osteoporos is. You should continue to eat a diet high in calcium and take vitamin D supplement s 5,000 IU daily. Regular weight bearing exercise is also important. This test should be repeated in 2-3 years. Contact me if you have any questions regarding this test result. Impacted c erumen in right ear [id number] 692862 H61.21 R ear irrigated to good effect [id number] [facility], [address] [address] 04/06/2024 09:45:20 04/06/2024 11:58:55 Impingement syndrome of right shoulder region [id number] 60787 M75.41 Pain of ri ght shoulder joint [id number] [id number] M25.006 [id number] [facility], [address] [address] 04/27/2024 09:09:31 04/27/2024 13:14:49 Impingement syndrome of right shoulder region [id number] 32855 M75.41 Pain of ri ght shoulder joint [id number] M25.511 Health Concerns Section Related Observation LastModified by Organization Detai ls LastModified Time None Recorded Concern Status LastModified by Organization Details LastModified Time None Recorded Advance Directives Directive None Recorded Payers Insurance Date Sequence Insurance Name Policy Number Policy Trivedi Covered Member ID Trivedi Member ID Guarantor Name 12/28/2019 [employer] (IN-NETWORK) Susan Valentin [id number] Susan Valentin 12/28/2019 1 [facility] [id number] Susan Valentin [id number] Susan Valentin 07/07/2023 [facility]UR[facility] [id number] Susan Valentin 12/28/2019 1 [place] [id number] Susan Valentin [id number] Susan Valentin 08/03/2013 1 [place] [id number] Lauri Valentin [id number] Susan Valentin 11/28/2004 1 [place] [facility] (O) [id number] Lauri Valentin [id number] Susan Valentin 12/28/2019 1 [facility] (O) Susan Valentin [id number] Susan Valentin 06/22/2024 1 [place]MEDICARE [place]PLACEMENT PPO) [id number] Susan Valentin [id number] Susan Valentin 03/12/2022 1 [facility] [id number] Susan Valentin [id number] Susan Valentin Notes Date Note Type Note Provider Name and Address Organization Details Recorded Time 4 text/html Susan is a 68-year-old female who presents today for uncontrolled chronic right shoulder pain. She was last evaluated on September 282022 when she underwent an intra-articular corticosteroid injection of her right shoulder. Unfortunately this only provided 1 day of symptom relief. Since then she has had persistent pain. She describes this as a consistent chronic soreness that does wax and wane at times. Her pain is worse with movement and occasionally she has some muscle spasms around the shoulder. She did try taking ibuprofen 400 mg 3 times daily for 7 days did not feel this helped much with her symptoms. She has been doing physical therapy which has provided some minor symptom relief. She denies any new injuries. She has never had any previous right shoulder surgery. Siva Zazueta MD [address] [place] [address], [phone], [facility] 11/23/2023 10:15:26 4 text/html Patient reports she had a good day yesterday. Pt reports she has throbbing with arm at rest and hanging at her side. Pt reports that she saw Dr. Zazueta who is recommending reverse total shoulder and ortho consult. Pt feels she is not yet ready for shoulder surgery.Patient Specific Functional Score:60 Percent limitation in putting on bra.60 Percent limitation in sleeping on right side.60 Percent limitation in raising my arm to full extension/ holding hairdryer. Laurent Caicedo DPT [address] [place] [address], [phone], [facility] 01/18/2024 10:04:39 4 text/html 68 yr old female here for wellness visitHad [facility] Mya Arciniega. Had breast exam. then Eating well, walkingVaried dietTakes calcium & vitamin D REAST CANCER SCREENING 03/2022, pt reports she had one more recentlyMammography - BI-RADS breast composition Category b). Parenchymal pattern is similar to prior studiesPAP 12/2023 with [facility] GYNBONE DENSITY - osteoporosisCOLON CANCER SCREENING 09/2022 - 10 yr f/uASCVD SCORE - 5.6% - borderline risk Shoulder soreness -Seeing Physical therapyHurts with useLimited ROM Now working for a [employer] yr old female seen today for annual wellness visit . Overall healthy - Some pain in shouldersEven using mouse irritationLost job at beginning of pandemicLooking for PT work Exercise Walk & Stretch daily Acid reflux - not an issue Ailin Rendon NP [address] [place] [address], [phone], [facility] 01/21/2024 22:29:26 4 text/html Physical Exam/FemaleReported bypatient.PHAPatient is here for a Wellness Visit. She describes her health status as good. Patient's health is better than last year.Risk Assessment and Lifestyle Change Counseling 65+ (Medicare)Reported bypatient.Coronary Artery Disease Risk Assessment:No Family history of coronary artery disease; No personal history of diabetes; No history of peripheral vascular disease, AAA, or carotid disease; No personal history of coronary artery disease Breast Cancer Risk Assessment:No family history of breast cancer; No history of breast cancer or dcis Colon Cancer Risk Assessment:No family history of pre cancerous colon polyps or cancer Lung Cancer Risk Assessment:Never smoked Safety Risk Assessment:No grab bars in bathroom; Has rails on steps; No falls; No evidence of abuse/neglect; Do you feel safe in your current relationship?YES Functional Status:Patient has trouble hearing the television or radio when others do not.;Patient has visual loss that interfers with daily activities; Wears glasses Diet:Counseled about appropriate portion size; Counseled about eating a diet low in trans and saturated fats and high in fiber, fruits and vegetables; Counseled about appropriate calcium intake and good dietary sources of calcium.; Counseled about the importance of maintaining a positive calcium balance and taking 1000 iu Vitamin D daily.; Counseled about decreasing carbohydrates; Counseled about decreasing salt in diet; Discussed the value of a Mediterranean diet , and eating more fruits and vegetables Exercise counseling:Discussed the importance of daily physical activity; Discussed the importance of weight bearing exercise Safety:Counseled about protecting skin from the sun and lowering the risk of skin cancer; Counseled about fall risk from throw rugs and the need for hand rails on steps and in bath; An audit alcohol screening was performed and scored. Patient was asked about alcohol use. Advised about risks of alcohol. Personal risk was assessed. Patient agreed to plan and given information about available resources if needed. Discussion including screening and scoring greater than 7.5 minutes.. Ailin Rendon NP [address] [place], [address], [facility] 01/21/2024 22:29:26 4 text/html Pt reports constant aching 12/18. Pt was very active this weekend doing gardening, cooking, and cleaning. Increased stiffness in the morning, then shoulder improves with movement. Feeling pain and tightness of lateral and posterior shoulder in the mornings. Pt is wanting to avoid surgery as much as possible, considering steroid shot. Patient Specific Functional Score:60 Percent limitation in putting on bra.60 Percent limitation in sleeping on right side.60 Percent limitation in raising my arm to full extension/ holding hairdryer. Laurent Caicedo DPT [address] [place], [phone], [facility] 04/06/2024 11:05:19 4 text/html Pt reports that she is managing with the pain, using arm as tolerated, painful to lift arm to get arm to her hair, less pain when she is at that position and is able to do her hair.Patient Specific Functional Score:60 Percent limitation in putting on bra.60 Percent limitation in sleeping on right side.60 Percent limitation in raising my arm to full extension/ holding hairdryer. Laurent Caicedo DPT [address] [place] [address], [phone], [facility] 04/27/2024 11:30:27 OBGyn Episode No OBEpisode recorded.
== END 2025-05-01 14:20 | disposition home or self-care (01) ==
LOC: HO.MAMMO 14:19
PROVIDERS: PCP Nurse Practitioner; Visit Provider Nurse Practitioner
DX: Z12.31 Encounter for screening mammogram for malignant neoplasm of breast (principal)
CPT/HCPCS: 77063; 77067

== ENCOUNTER → 2025-05-01 14:30 | Outpatient (BNV) | payer MEDICARE, SELFPAY | PROVIDERS: PCP Nurse Practitioner; Visit Provider Internal Medicine | DX: Z12.31 Encounter for screening mammogram for malignant neoplasm of breast (principal) | CPT/HCPCS: 77063; 77067 ==